=== PATIENT | female | born 1960 | race Caucasian/White ===

== ENCOUNTER 2020-07-16 10:18 | Emergency (ER) | payer BC, OTHER ==
[2020-07-16 11:01] LABS: Absolute Lymphocytes (CBC) 1.5 K/uL (0.7-4.9); Basophils % 0.5 % (0-1.3); Hematocrit 38.9 % (36.0-45.0); Lymphocytes % 14.2 % (15.3-44.8); MPV 9.1 fL (7.6-11.3); RBC Red Blood Cell Count 3.97 M/uL (3.86-4.86)
[2020-07-16 11:14] LABS: Protime INR 0.92
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
[2020-07-16 11:27] LABS: Potassium 3.9 mmol/L (3.5-5.1)
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
[2020-07-16 12:13] LABS: Barbiturates NEGATIVE (NEGATIVE); Benzodiazepines POSITIVE (NEGATIVE); Cocaine NEGATIVE (NEGATIVE); METHAMPHETAM NEGATIVE (NEGATIVE); Methadone NEGATIVE (NEGATIVE); Opiates POSITIVE (NEGATIVE); Phencyclidine NEGATIVE (NEGATIVE); THC Cannibis NEGATIVE (NEGATIVE)
[2020-07-17 21:03] VITALS: TEMP 97.6
[2020-07-17 21:05] VITALS: BP 129/73; O2SAT 100
== END 2020-07-16 12:20 | disposition short-term general hospital (02) ==
LOC: ER 10:18
DX: S36.114A Minor laceration of liver, initial encounter (principal); S27.0XXA Traumatic pneumothorax, initial encounter; S22.42XA Multiple fractures of ribs, left side, initial encounter for closed fracture; S32.030A Wedge compression fracture of third lumbar vertebra, initial encounter for closed fracture; I10 Essential (primary) hypertension; V49.9XXA Car occupant (driver) (passenger) injured in unspecified traffic accident, initial encounter; Z88.0 Allergy status to penicillin; Z88.6 Allergy status to analgesic agent; Z88.8 Allergy status to other drugs, medicaments and biological substances
CPT/HCPCS: 93005; 85025; 80048; 36415; 80320; 86900; 86850; 85610; 82565; 86901; 80307 ×8; 85730; 70450; 72125; 71260; 74177; 51702; 99285; Q9967; G0390